=== PATIENT | female | born 1995 | race African-American/Black ===

== ENCOUNTER 2018-08-04 20:37 | Emergency (ER) | payer SELFPAY ==
[~2018-08-04] VITALS: Ht 170.2 cm; Wt 56.0 kg
[2018-08-04] MEDS ORDERED: MOTRIN800 MG PO (21:25)
[2018-08-04 21:44] VITALS: BP 130/87
== END 2018-08-04 21:45 | disposition home or self-care (01) | DRG 125 ==
LOC: ED 20:37
DX: S00.12XA Contusion of left eyelid and periocular area, initial encounter (principal); H11.32 Conjunctival hemorrhage, left eye; V47.5XXA Car driver injured in collision with fixed or stationary object in traffic accident, initial encounter